=== PATIENT | male | born 1950 | race Caucasian/White ===

== ENCOUNTER 2023-08-17 12:27 | Outpatient (CLI) | payer MEDICARE | END 2023-08-17 12:28 | disposition home or self-care (01) | LOC: CT 12:27 | PROVIDERS: ATTEND Internal Medicine Interventional Cardiology | DX: I10 Essential (primary) hypertension (principal); E78.2 Mixed hyperlipidemia; I25.708 Atherosclerosis of coronary artery bypass graft(s), unspecified, with other forms of angina pectoris; I70.1 Atherosclerosis of renal artery; I77.4 Celiac artery compression syndrome; K55.1 Chronic vascular disorders of intestine; K76.0 Fatty (change of) liver, not elsewhere classified; I70.8 Atherosclerosis of other arteries; M85.9 Disorder of bone density and structure, unspecified | CPT/HCPCS: 74175; 82565 ==